=== PATIENT | male | born 1970 | race Two or more races ===

== ENCOUNTER 2022-07-26 13:31 | Inpatient (IN) | payer OTHER ==
[2022-07-26 15:57] VITALS: BMI 17.9
[2022-07-26] MEDS ORDERED: P-EPHED 60MG/TRIPROLIDI 2.5MG TABLET PO PRN (16:12)
[2022-07-26] MEDS ORDERED: guaiFENesin 200 MG/10 ML 10 ML UNIT-DOSE CUPS PO PRN (16:12)
[2022-07-26] MEDS ORDERED: MAGNESIUM HYDROX 2400MG/30ML ORAL SUSPENSION 30 ML CUP PO PRN (16:12)
[2022-07-26] MEDS ORDERED: LOPERAMIDE HCL 2 MG CAPSULE PO PRN (16:12)
[2022-07-26] MEDS ORDERED: MAGNESIUM CITRATE 300 ML BOTTLE PO PRN (16:12)
[2022-07-26] MEDS ORDERED: IBUPROFEN 400 MG TABLET (FP) PO PRN (16:12)
[2022-07-26] MEDS ORDERED: ACETAMINOPHEN 325 MG TABLET (FP) PO PRN (16:12)
[2022-07-26] MEDS: THIAMINE HCL 100 MG TABLET (FP) PO SCH (21:41)
[2022-07-26] MEDS: MELATONIN 5 MG TABLETS PO SCH (21:41)
[2022-07-26] MEDS: NICOTINE 7 MG/24 HOURS TOPICAL PATCH TD SCH (21:42)
[2022-07-26] MEDS: hydrOXYzine PAMOATE 25 MG CAPSULE (FP) PO SCH ×3 (21:42→21:50)
[2022-07-26] MEDS: PRENATAL VITAMINS W/ FOLIC ACID TABLET (FP) PO SCH (21:44)
[2022-07-26] MEDS ORDERED: TUBERCULIN PPD 5 TU/0.1ML VIAL ID ONE (21:48)
[2022-07-26] MEDS: NICOTINE 10 MG CARTRIDGE (INHALER) IH PRN (21:48)
[2022-07-27] MEDS: hydrOXYzine PAMOATE 25 MG CAPSULE (FP) PO SCH ×5 (06:30→21:07)
[2022-07-27] MEDS: NICOTINE 10 MG CARTRIDGE (INHALER) IH PRN ×3 (06:31→21:07)
[2022-07-27] MEDS ORDERED: methaDONE HCL 10 MG TABLET PO SCH (08:00)
[2022-07-27] MEDS ORDERED: methaDONE 40 MG, methaDONE 10 MG PO ONE (08:15)
[2022-07-27] MEDS: PRENATAL VITAMINS W/ FOLIC ACID TABLET (FP) PO SCH (09:36)
[2022-07-27] MEDS: NICOTINE 7 MG/24 HOURS TOPICAL PATCH TD SCH (09:36)
[2022-07-27 14:00] LABS: CALCIUM 8.9 mg/dL (8.5-10.1)
[2022-07-27 14:01] LABS: ALBUMIN 3.2 g/dl (3.4-5.0); BLOOD UREA NITROGEN 18.6 mg/dL (7-18); HEMATOCRIT 36.7 % (35.4-49); HEMOGLOBIN 12.3 GM/dL (11.7-16.9); MCH 32.4 pg (25.7-33.7); MCHC 33.7 g/dl (32.0-35.9); MEAN CELL VOLUME 96.1 fl (80-96); MEAN PLT VOLUME 9.2 fl (7.5-11.1); PLATELET COUNT 207 10^3/uL (134-434); RBC 3.81 M/mm3 (4.00-5.60); RDW 13.4 % (11.9-15.9); WHITE BLOOD COUNT 4.5 K/mm3 (4.0-10.0)
[2022-07-27 14:04] LABS: CREATININE 0.8 mg/dL (0.55-1.3)
[2022-07-27 14:06] LABS: BILIRUBIN,TOTAL 0.3 mg/dL (0.2-1); TOT PROT 6.6 g/dl (6.4-8.2)
[2022-07-27 14:10] LABS: EPI CELLS 15 /uL (0-25.1); HYALINE CASTS 2 /uL (0-3.1); URINE APPEARANCE CLEAR; URINE BACTERIA 86 /uL (0-1359); URINE BILIRUBIN NEGATIVE (NEGATIVE); URINE COLOR YELLOW; URINE GLUCOSE (UA) NEGATIVE (NEGATIVE); URINE KETONE NEGATIVE (NEGATIVE); URINE LEUK ESTERASE TRACE (NEGATIVE); URINE NITRITE NEGATIVE (NEGATIVE); URINE PROTEIN NEGATIVE (NEGATIVE); URINE RBC 49 /uL (0-23.9); URINE UROBILINOGEN 0.2 mg/dL (0.2-1.0); URINE WBC 33 /uL (0-25.8)
[2022-07-27 14:17] LABS: SYPHILIS W/ RPR CONF NON-REACTIVE (NONREACTIVE)
[2022-07-27] MEDS: MAG HYDROX/AL HYDROX/SIMETH 30 ML UNIT-DOSE CUP PO PRN (17:07)
[2022-07-27] MEDS: THIAMINE HCL 100 MG TABLET (FP) PO SCH (21:07)
[2022-07-27] MEDS: MELATONIN 5 MG TABLETS PO SCH (21:07)
[2022-07-27] MEDS: GABAPENTIN 400 MG CAPSULE PO SCH (21:08)
[2022-07-27] MEDS: QUEtiapine FUMARATE 100 MG TABLET (FP) PO SCH (21:08)
[2022-07-28] MEDS: hydrOXYzine PAMOATE 25 MG CAPSULE (FP) PO SCH ×5 (06:01→21:32)
[2022-07-28] MEDS: NICOTINE 10 MG CARTRIDGE (INHALER) IH PRN ×3 (06:36→14:38)
[2022-07-28] MEDS: methaDONE 40 MG, methaDONE 10 MG PO SCH (06:36)
[2022-07-28] MEDS: GABAPENTIN 400 MG CAPSULE PO SCH ×3 (06:36→21:31)
[2022-07-28] MEDS: SERTRALINE HCL 50 MG TABLET (FP) PO SCH (10:09)
[2022-07-28] MEDS: PRENATAL VITAMINS W/ FOLIC ACID TABLET (FP) PO SCH (10:09)
[2022-07-28] MEDS: NICOTINE 7 MG/24 HOURS TOPICAL PATCH TD SCH (10:09)
[2022-07-28] MEDS: MAG HYDROX/AL HYDROX/SIMETH 30 ML UNIT-DOSE CUP PO PRN (10:10)
[2022-07-28] MEDS: PANTOPRAZOLE 20 MG TABLET PO SCH (15:21)
[2022-07-28] MEDS: MELATONIN 5 MG TABLETS PO SCH (21:31)
[2022-07-28] MEDS: THIAMINE HCL 100 MG TABLET (FP) PO SCH (21:31)
[2022-07-28] MEDS: QUEtiapine FUMARATE 100 MG TABLET (FP) PO SCH (21:32)
[2022-07-29] MEDS: methaDONE 40 MG, methaDONE 10 MG PO SCH (06:21)
[2022-07-29] MEDS: MAG HYDROX/AL HYDROX/SIMETH 30 ML UNIT-DOSE CUP PO PRN ×2 (06:23→18:04)
[2022-07-29] MEDS: hydrOXYzine PAMOATE 25 MG CAPSULE (FP) PO SCH ×5 (06:23→21:22)
[2022-07-29] MEDS: NICOTINE 10 MG CARTRIDGE (INHALER) IH PRN ×3 (06:24→18:04)
[2022-07-29] MEDS: GABAPENTIN 400 MG CAPSULE PO SCH (06:24)
[2022-07-29] MEDS: PRENATAL VITAMINS W/ FOLIC ACID TABLET (FP) PO SCH (10:16)
[2022-07-29] MEDS: SERTRALINE HCL 50 MG TABLET (FP) PO SCH (10:16)
[2022-07-29] MEDS: PANTOPRAZOLE 20 MG TABLET PO SCH (10:16)
[2022-07-29] MEDS: NICOTINE 7 MG/24 HOURS TOPICAL PATCH TD SCH (10:16)
[2022-07-29] MEDS: GABAPENTIN 300 MG CAPSULE PO SCH ×2 (14:30→21:22)
[2022-07-29] MEDS: QUEtiapine FUMARATE 100 MG TABLET (FP) PO SCH (21:22)
[2022-07-29] MEDS: THIAMINE HCL 100 MG TABLET (FP) PO SCH (21:22)
[2022-07-29] MEDS: MELATONIN 5 MG TABLETS PO SCH (21:22)
[2022-07-30] MEDS: methaDONE 40 MG, methaDONE 10 MG PO SCH (06:29)
[2022-07-30] MEDS: hydrOXYzine PAMOATE 25 MG CAPSULE (FP) PO SCH ×5 (06:30→21:02)
[2022-07-30] MEDS: GABAPENTIN 300 MG CAPSULE PO SCH ×3 (06:31→21:02)
[2022-07-30] MEDS: MAG HYDROX/AL HYDROX/SIMETH 30 ML UNIT-DOSE CUP PO PRN (07:38)
[2022-07-30] MEDS: PANTOPRAZOLE 20 MG TABLET PO SCH (10:02)
[2022-07-30] MEDS: SERTRALINE HCL 50 MG TABLET (FP) PO SCH (10:02)
[2022-07-30] MEDS: PRENATAL VITAMINS W/ FOLIC ACID TABLET (FP) PO SCH (10:02)
[2022-07-30] MEDS: NICOTINE 7 MG/24 HOURS TOPICAL PATCH TD SCH (10:02)
[2022-07-30] MEDS: NICOTINE 10 MG CARTRIDGE (INHALER) IH PRN (10:03)
[2022-07-30] MEDS: THIAMINE HCL 100 MG TABLET (FP) PO SCH (21:02)
[2022-07-30] MEDS: QUEtiapine FUMARATE 100 MG TABLET (FP) PO SCH (21:02)
[2022-07-30] MEDS: MELATONIN 5 MG TABLETS PO SCH (21:02)
[2022-07-31] MEDS: methaDONE 40 MG, methaDONE 10 MG PO SCH (06:43)
[2022-07-31] MEDS: GABAPENTIN 300 MG CAPSULE PO SCH ×3 (06:44→21:05)
[2022-07-31] MEDS: hydrOXYzine PAMOATE 25 MG CAPSULE (FP) PO SCH ×5 (06:44→21:06)
[2022-07-31] MEDS: MAG HYDROX/AL HYDROX/SIMETH 30 ML UNIT-DOSE CUP PO PRN ×2 (06:47→21:07)
[2022-07-31] MEDS: NICOTINE 7 MG/24 HOURS TOPICAL PATCH TD SCH (10:16)
[2022-07-31] MEDS: SERTRALINE HCL 50 MG TABLET (FP) PO SCH (10:16)
[2022-07-31] MEDS: PANTOPRAZOLE 20 MG TABLET PO SCH (10:16)
[2022-07-31] MEDS: PRENATAL VITAMINS W/ FOLIC ACID TABLET (FP) PO SCH (10:16)
[2022-07-31] MEDS: NICOTINE 10 MG CARTRIDGE (INHALER) IH PRN ×3 (10:17→19:30)
[2022-07-31] MEDS: QUEtiapine FUMARATE 100 MG TABLET (FP) PO SCH (21:06)
[2022-07-31] MEDS: MELATONIN 5 MG TABLETS PO SCH (21:06)
[2022-07-31] MEDS: THIAMINE HCL 100 MG TABLET (FP) PO SCH (21:06)
[2022-08-01] MEDS: methaDONE 40 MG, methaDONE 10 MG PO SCH (06:11)
[2022-08-01] MEDS: GABAPENTIN 300 MG CAPSULE PO SCH ×3 (06:12→21:03)
[2022-08-01] MEDS: hydrOXYzine PAMOATE 25 MG CAPSULE (FP) PO SCH ×5 (06:12→21:04)
[2022-08-01] MEDS: MAG HYDROX/AL HYDROX/SIMETH 30 ML UNIT-DOSE CUP PO PRN ×2 (06:13→21:04)
[2022-08-01] MEDS: NICOTINE 10 MG CARTRIDGE (INHALER) IH PRN ×3 (06:14→21:17)
[2022-08-01] MEDS: PRENATAL VITAMINS W/ FOLIC ACID TABLET (FP) PO SCH (09:57)
[2022-08-01] MEDS: NICOTINE 7 MG/24 HOURS TOPICAL PATCH TD SCH (09:57)
[2022-08-01] MEDS: SERTRALINE HCL 50 MG TABLET (FP) PO SCH (09:57)
[2022-08-01] MEDS: PANTOPRAZOLE 20 MG TABLET PO SCH (09:57)
[2022-08-01] MEDS: THIAMINE HCL 100 MG TABLET (FP) PO SCH (21:03)
[2022-08-01] MEDS: MELATONIN 5 MG TABLETS PO SCH (21:04)
[2022-08-01] MEDS: QUEtiapine FUMARATE 100 MG TABLET (FP) PO SCH (21:04)
[2022-08-02] MEDS: methaDONE 40 MG, methaDONE 10 MG PO SCH (06:29)
[2022-08-02] MEDS: GABAPENTIN 300 MG CAPSULE PO SCH ×3 (06:30→21:17)
[2022-08-02] MEDS: hydrOXYzine PAMOATE 25 MG CAPSULE (FP) PO SCH ×5 (06:30→21:18)
[2022-08-02] MEDS: MAG HYDROX/AL HYDROX/SIMETH 30 ML UNIT-DOSE CUP PO PRN (06:31)
[2022-08-02] MEDS: NICOTINE 10 MG CARTRIDGE (INHALER) IH PRN ×3 (06:31→21:19)
[2022-08-02] MEDS ORDERED: ALBUTEROL SO4 HFA INHALER IH PRN (09:08)
[2022-08-02] MEDS: PANTOPRAZOLE 20 MG TABLET PO SCH (10:34)
[2022-08-02] MEDS: PRENATAL VITAMINS W/ FOLIC ACID TABLET (FP) PO SCH (10:34)
[2022-08-02] MEDS: SERTRALINE HCL 50 MG TABLET (FP) PO SCH (10:34)
[2022-08-02] MEDS: NICOTINE 7 MG/24 HOURS TOPICAL PATCH TD SCH (10:35)
[2022-08-02] MEDS: BICTEGRAV/EMTRICIT/TENOFOV (BIKTARVY) 50-200-25 MG TABLET PO SCH (13:22)
[2022-08-02] MEDS: MELATONIN 5 MG TABLETS PO SCH (21:17)
[2022-08-02] MEDS: THIAMINE HCL 100 MG TABLET (FP) PO SCH (21:17)
[2022-08-02] MEDS: QUEtiapine FUMARATE 100 MG TABLET (FP) PO SCH (21:17)
[2022-08-03] MEDS: GABAPENTIN 300 MG CAPSULE PO SCH ×3 (06:16→21:05)
[2022-08-03] MEDS: hydrOXYzine PAMOATE 25 MG CAPSULE (FP) PO SCH ×5 (06:16→21:05)
[2022-08-03] MEDS: methaDONE 40 MG, methaDONE 10 MG PO SCH (06:16)
[2022-08-03] MEDS: BICTEGRAV/EMTRICIT/TENOFOV (BIKTARVY) 50-200-25 MG TABLET PO SCH (07:02)
[2022-08-03] MEDS: PANTOPRAZOLE 20 MG TABLET PO SCH (09:54)
[2022-08-03] MEDS: SERTRALINE HCL 50 MG TABLET (FP) PO SCH (09:54)
[2022-08-03] MEDS: PRENATAL VITAMINS W/ FOLIC ACID TABLET (FP) PO SCH (09:54)
[2022-08-03] MEDS: NICOTINE 7 MG/24 HOURS TOPICAL PATCH TD SCH (09:54)
[2022-08-03] MEDS: NICOTINE 10 MG CARTRIDGE (INHALER) IH PRN ×3 (09:55→21:05)
[2022-08-03] MEDS: MELATONIN 5 MG TABLETS PO SCH (21:04)
[2022-08-03] MEDS: THIAMINE HCL 100 MG TABLET (FP) PO SCH (21:04)
[2022-08-03] MEDS: QUEtiapine FUMARATE 100 MG TABLET (FP) PO SCH (21:05)
[2022-08-03] MEDS: MAG HYDROX/AL HYDROX/SIMETH 30 ML UNIT-DOSE CUP PO PRN (21:05)
[2022-08-04] MEDS: hydrOXYzine PAMOATE 25 MG CAPSULE (FP) PO SCH ×5 (06:38→21:13)
[2022-08-04] MEDS: methaDONE 40 MG, methaDONE 10 MG PO SCH (06:39)
[2022-08-04] MEDS: GABAPENTIN 300 MG CAPSULE PO SCH ×3 (06:39→21:13)
[2022-08-04] MEDS: MAG HYDROX/AL HYDROX/SIMETH 30 ML UNIT-DOSE CUP PO PRN (06:41)
[2022-08-04] MEDS: BICTEGRAV/EMTRICIT/TENOFOV (BIKTARVY) 50-200-25 MG TABLET PO SCH (08:47)
[2022-08-04] MEDS: NICOTINE 10 MG CARTRIDGE (INHALER) IH PRN ×2 (10:05→21:14)
[2022-08-04] MEDS: PANTOPRAZOLE 20 MG TABLET PO SCH (10:05)
[2022-08-04] MEDS: NICOTINE 7 MG/24 HOURS TOPICAL PATCH TD SCH (10:05)
[2022-08-04] MEDS: SERTRALINE HCL 50 MG TABLET (FP) PO SCH (10:05)
[2022-08-04] MEDS: PRENATAL VITAMINS W/ FOLIC ACID TABLET (FP) PO SCH (10:05)
[2022-08-04] MEDS: MELATONIN 5 MG TABLETS PO SCH (21:13)
[2022-08-04] MEDS: THIAMINE HCL 100 MG TABLET (FP) PO SCH (21:13)
[2022-08-04] MEDS: QUEtiapine FUMARATE 100 MG TABLET (FP) PO SCH (21:13)
[2022-08-05] MEDS: MAG HYDROX/AL HYDROX/SIMETH 30 ML UNIT-DOSE CUP PO PRN (06:03)
[2022-08-05] MEDS: methaDONE 40 MG, methaDONE 10 MG PO SCH (06:04)
[2022-08-05] MEDS: GABAPENTIN 300 MG CAPSULE PO SCH ×3 (06:05→21:30)
[2022-08-05] MEDS: hydrOXYzine PAMOATE 25 MG CAPSULE (FP) PO SCH (06:05)
[2022-08-05] MEDS: BICTEGRAV/EMTRICIT/TENOFOV (BIKTARVY) 50-200-25 MG TABLET PO SCH (07:09)
[2022-08-05] MEDS ORDERED: BISMUTH SUBSALICYLATE 262 MG/15 ML BTL PO ONE (09:45)
[2022-08-05] MEDS: PANTOPRAZOLE 20 MG TABLET PO SCH (10:03)
[2022-08-05] MEDS: SERTRALINE HCL 50 MG TABLET (FP) PO SCH (10:03)
[2022-08-05] MEDS: PRENATAL VITAMINS W/ FOLIC ACID TABLET (FP) PO SCH (10:03)
[2022-08-05] MEDS: NICOTINE 7 MG/24 HOURS TOPICAL PATCH TD SCH (10:04)
[2022-08-05] MEDS: SIMETHICONE 80 MG TAB.CHEW (FP) PO PRN (14:11)
[2022-08-05] MEDS: MELATONIN 5 MG TABLETS PO SCH (21:29)
[2022-08-05] MEDS: QUEtiapine FUMARATE 100 MG TABLET (FP) PO SCH (21:30)
[2022-08-05] MEDS: THIAMINE HCL 100 MG TABLET (FP) PO SCH (21:30)
[2022-08-05] MEDS: hydrOXYzine PAMOATE 25 MG CAPSULE (FP) PO PRN (21:31)
[2022-08-06] MEDS: methaDONE 40 MG, methaDONE 10 MG PO SCH (06:07)
[2022-08-06] MEDS: GABAPENTIN 300 MG CAPSULE PO SCH ×3 (06:08→21:17)
[2022-08-06] MEDS: hydrOXYzine PAMOATE 25 MG CAPSULE (FP) PO PRN (06:11)
[2022-08-06] MEDS: BICTEGRAV/EMTRICIT/TENOFOV (BIKTARVY) 50-200-25 MG TABLET PO SCH (07:17)
[2022-08-06] MEDS: SERTRALINE HCL 50 MG TABLET (FP) PO SCH (09:35)
[2022-08-06] MEDS: PRENATAL VITAMINS W/ FOLIC ACID TABLET (FP) PO SCH (09:35)
[2022-08-06] MEDS: PANTOPRAZOLE 20 MG TABLET PO SCH (09:36)
[2022-08-06] MEDS: NICOTINE 7 MG/24 HOURS TOPICAL PATCH TD SCH (09:37)
[2022-08-06] MEDS: NICOTINE 10 MG CARTRIDGE (INHALER) IH PRN (15:09)
[2022-08-06] MEDS: THIAMINE HCL 100 MG TABLET (FP) PO SCH (21:16)
[2022-08-06] MEDS: QUEtiapine FUMARATE 100 MG TABLET (FP) PO SCH (21:17)
[2022-08-06] MEDS: MELATONIN 5 MG TABLETS PO SCH (21:17)
[2022-08-06] MEDS: SIMETHICONE 80 MG TAB.CHEW (FP) PO PRN (21:18)
[2022-08-07] MEDS: methaDONE 40 MG, methaDONE 10 MG PO SCH (06:51)
[2022-08-07] MEDS: GABAPENTIN 300 MG CAPSULE PO SCH ×3 (06:52→21:03)
[2022-08-07] MEDS: hydrOXYzine PAMOATE 25 MG CAPSULE (FP) PO PRN (06:53)
[2022-08-07] MEDS: BICTEGRAV/EMTRICIT/TENOFOV (BIKTARVY) 50-200-25 MG TABLET PO SCH (07:01)
[2022-08-07] MEDS: NICOTINE 10 MG CARTRIDGE (INHALER) IH PRN ×2 (08:28→21:04)
[2022-08-07] MEDS: PRENATAL VITAMINS W/ FOLIC ACID TABLET (FP) PO SCH (09:37)
[2022-08-07] MEDS: SERTRALINE HCL 50 MG TABLET (FP) PO SCH (09:37)
[2022-08-07] MEDS: NICOTINE 7 MG/24 HOURS TOPICAL PATCH TD SCH (09:37)
[2022-08-07] MEDS: PANTOPRAZOLE 20 MG TABLET PO SCH (09:38)
[2022-08-07] MEDS: SIMETHICONE 80 MG TAB.CHEW (FP) PO PRN ×2 (10:04→21:03)
[2022-08-07] MEDS: MELATONIN 5 MG TABLETS PO SCH (21:03)
[2022-08-07] MEDS: THIAMINE HCL 100 MG TABLET (FP) PO SCH (21:03)
[2022-08-07] MEDS: QUEtiapine FUMARATE 100 MG TABLET (FP) PO SCH (21:03)
[2022-08-08] MEDS: methaDONE 40 MG, methaDONE 10 MG PO SCH (06:49)
[2022-08-08] MEDS: GABAPENTIN 300 MG CAPSULE PO SCH ×3 (06:49→21:11)
[2022-08-08] MEDS: hydrOXYzine PAMOATE 25 MG CAPSULE (FP) PO PRN (06:50)
[2022-08-08] MEDS: BICTEGRAV/EMTRICIT/TENOFOV (BIKTARVY) 50-200-25 MG TABLET PO SCH (07:14)
[2022-08-08] MEDS: PANTOPRAZOLE 20 MG TABLET PO SCH (09:38)
[2022-08-08] MEDS: SIMETHICONE 80 MG TAB.CHEW (FP) PO PRN ×2 (09:38→21:11)
[2022-08-08] MEDS: NICOTINE 7 MG/24 HOURS TOPICAL PATCH TD SCH (09:38)
[2022-08-08] MEDS: PRENATAL VITAMINS W/ FOLIC ACID TABLET (FP) PO SCH (09:38)
[2022-08-08] MEDS: SERTRALINE HCL 50 MG TABLET (FP) PO SCH (09:38)
[2022-08-08] MEDS: NICOTINE 10 MG CARTRIDGE (INHALER) IH PRN (09:39)
[2022-08-08] MEDS: THIAMINE HCL 100 MG TABLET (FP) PO SCH (21:10)
[2022-08-08] MEDS: MELATONIN 5 MG TABLETS PO SCH (21:10)
[2022-08-08] MEDS: QUEtiapine FUMARATE 100 MG TABLET (FP) PO SCH (21:11)
[2022-08-09] MEDS: SIMETHICONE 80 MG TAB.CHEW (FP) PO PRN (06:19)
[2022-08-09] MEDS: methaDONE 40 MG, methaDONE 10 MG PO SCH (06:20)
[2022-08-09] MEDS: GABAPENTIN 300 MG CAPSULE PO SCH ×3 (06:21→21:14)
[2022-08-09] MEDS: hydrOXYzine PAMOATE 25 MG CAPSULE (FP) PO PRN ×2 (06:21→13:51)
[2022-08-09] MEDS: BICTEGRAV/EMTRICIT/TENOFOV (BIKTARVY) 50-200-25 MG TABLET PO SCH (07:01)
[2022-08-09] MEDS: PANTOPRAZOLE 20 MG TABLET PO SCH (09:57)
[2022-08-09] MEDS: PRENATAL VITAMINS W/ FOLIC ACID TABLET (FP) PO SCH (09:57)
[2022-08-09] MEDS: SERTRALINE HCL 50 MG TABLET (FP) PO SCH (09:57)
[2022-08-09] MEDS: NICOTINE 7 MG/24 HOURS TOPICAL PATCH TD SCH (09:58)
[2022-08-09] MEDS: BISMUTH SUBSALICYLATE 262 MG/15 ML BTL PO PRN (10:01)
[2022-08-09] MEDS: NICOTINE 10 MG CARTRIDGE (INHALER) IH PRN (10:03)
[2022-08-09] MEDS: THIAMINE HCL 100 MG TABLET (FP) PO SCH (21:14)
[2022-08-09] MEDS: QUEtiapine FUMARATE 100 MG TABLET (FP) PO SCH (21:14)
[2022-08-09] MEDS: MELATONIN 5 MG TABLETS PO SCH (21:14)
[2022-08-10] MEDS: methaDONE 40 MG, methaDONE 10 MG PO SCH (06:47)
[2022-08-10] MEDS: hydrOXYzine PAMOATE 25 MG CAPSULE (FP) PO PRN ×2 (06:48→21:06)
[2022-08-10] MEDS: GABAPENTIN 300 MG CAPSULE PO SCH ×3 (06:48→21:05)
[2022-08-10] MEDS: BICTEGRAV/EMTRICIT/TENOFOV (BIKTARVY) 50-200-25 MG TABLET PO SCH (08:14)
[2022-08-10] MEDS: PRENATAL VITAMINS W/ FOLIC ACID TABLET (FP) PO SCH (09:57)
[2022-08-10] MEDS: SERTRALINE HCL 50 MG TABLET (FP) PO SCH (09:57)
[2022-08-10] MEDS: NICOTINE 7 MG/24 HOURS TOPICAL PATCH TD SCH (09:57)
[2022-08-10] MEDS: NICOTINE 10 MG CARTRIDGE (INHALER) IH PRN (09:57)
[2022-08-10] MEDS: PANTOPRAZOLE 20 MG TABLET PO SCH (09:57)
[2022-08-10] MEDS: BISMUTH SUBSALICYLATE 262 MG/15 ML BTL PO PRN (09:58)
[2022-08-10] MEDS: MELATONIN 5 MG TABLETS PO SCH (21:05)
[2022-08-10] MEDS: QUEtiapine FUMARATE 100 MG TABLET (FP) PO SCH (21:05)
[2022-08-10] MEDS: THIAMINE HCL 100 MG TABLET (FP) PO SCH (21:05)
[2022-08-11] MEDS: GABAPENTIN 300 MG CAPSULE PO SCH ×3 (06:15→21:10)
[2022-08-11] MEDS: methaDONE 40 MG, methaDONE 10 MG PO SCH (06:15)
[2022-08-11] MEDS: hydrOXYzine PAMOATE 25 MG CAPSULE (FP) PO PRN (06:16)
[2022-08-11] MEDS: BICTEGRAV/EMTRICIT/TENOFOV (BIKTARVY) 50-200-25 MG TABLET PO SCH (07:00)
[2022-08-11] MEDS: PRENATAL VITAMINS W/ FOLIC ACID TABLET (FP) PO SCH (09:43)
[2022-08-11] MEDS: PANTOPRAZOLE 20 MG TABLET PO SCH (09:43)
[2022-08-11] MEDS: NICOTINE 7 MG/24 HOURS TOPICAL PATCH TD SCH (09:44)
[2022-08-11] MEDS: BISMUTH SUBSALICYLATE 262 MG/15 ML BTL PO PRN ×2 (09:44→21:11)
[2022-08-11] MEDS: SERTRALINE HCL 50 MG TABLET (FP) PO SCH (09:44)
[2022-08-11] MEDS: NICOTINE 10 MG CARTRIDGE (INHALER) IH PRN ×2 (09:46→21:10)
[2022-08-11] MEDS: THIAMINE HCL 100 MG TABLET (FP) PO SCH (21:10)
[2022-08-11] MEDS: QUEtiapine FUMARATE 100 MG TABLET (FP) PO SCH (21:10)
[2022-08-11] MEDS: MELATONIN 5 MG TABLETS PO SCH (21:10)
[2022-08-12] MEDS: hydrOXYzine PAMOATE 25 MG CAPSULE (FP) PO PRN (06:10)
[2022-08-12] MEDS: GABAPENTIN 300 MG CAPSULE PO SCH ×3 (06:10→21:13)
[2022-08-12] MEDS: methaDONE 40 MG, methaDONE 10 MG PO SCH (06:10)
[2022-08-12] MEDS: SIMETHICONE 80 MG TAB.CHEW (FP) PO PRN ×2 (06:39→21:13)
[2022-08-12] MEDS: BICTEGRAV/EMTRICIT/TENOFOV (BIKTARVY) 50-200-25 MG TABLET PO SCH (07:00)
[2022-08-12] MEDS: PRENATAL VITAMINS W/ FOLIC ACID TABLET (FP) PO SCH (09:50)
[2022-08-12] MEDS: SERTRALINE HCL 50 MG TABLET (FP) PO SCH (09:51)
[2022-08-12] MEDS: PANTOPRAZOLE 20 MG TABLET PO SCH (09:51)
[2022-08-12] MEDS: NICOTINE 7 MG/24 HOURS TOPICAL PATCH TD SCH (09:52)
[2022-08-12] MEDS: MELATONIN 5 MG TABLETS PO SCH (21:12)
[2022-08-12] MEDS: THIAMINE HCL 100 MG TABLET (FP) PO SCH (21:12)
[2022-08-12] MEDS: QUEtiapine FUMARATE 100 MG TABLET (FP) PO SCH (21:13)
[2022-08-13] MEDS: methaDONE 40 MG, methaDONE 10 MG PO SCH (05:55)
[2022-08-13] MEDS: GABAPENTIN 300 MG CAPSULE PO SCH ×3 (05:55→21:10)
[2022-08-13] MEDS: BICTEGRAV/EMTRICIT/TENOFOV (BIKTARVY) 50-200-25 MG TABLET PO SCH (07:47)
[2022-08-13] MEDS: PRENATAL VITAMINS W/ FOLIC ACID TABLET (FP) PO SCH (09:39)
[2022-08-13] MEDS: SERTRALINE HCL 50 MG TABLET (FP) PO SCH (09:40)
[2022-08-13] MEDS: PANTOPRAZOLE 20 MG TABLET PO SCH (09:40)
[2022-08-13] MEDS: NICOTINE 7 MG/24 HOURS TOPICAL PATCH TD SCH (09:40)
[2022-08-13] MEDS: NICOTINE 10 MG CARTRIDGE (INHALER) IH PRN (09:40)
[2022-08-13] MEDS: THIAMINE HCL 100 MG TABLET (FP) PO SCH (21:10)
[2022-08-13] MEDS: QUEtiapine FUMARATE 100 MG TABLET (FP) PO SCH (21:10)
[2022-08-13] MEDS: MELATONIN 5 MG TABLETS PO SCH (21:10)
[2022-08-13] MEDS: BISMUTH SUBSALICYLATE 262 MG/15 ML BTL PO PRN (21:10)
[2022-08-14] MEDS: hydrOXYzine PAMOATE 25 MG CAPSULE (FP) PO PRN (06:32)
[2022-08-14] MEDS: GABAPENTIN 300 MG CAPSULE PO SCH ×3 (06:32→21:04)
[2022-08-14] MEDS: methaDONE 40 MG, methaDONE 10 MG PO SCH (06:32)
[2022-08-14] MEDS: BICTEGRAV/EMTRICIT/TENOFOV (BIKTARVY) 50-200-25 MG TABLET PO SCH (07:08)
[2022-08-14] MEDS: NICOTINE 7 MG/24 HOURS TOPICAL PATCH TD SCH (10:16)
[2022-08-14] MEDS: PRENATAL VITAMINS W/ FOLIC ACID TABLET (FP) PO SCH (10:16)
[2022-08-14] MEDS: SERTRALINE HCL 50 MG TABLET (FP) PO SCH (10:16)
[2022-08-14] MEDS: PANTOPRAZOLE 20 MG TABLET PO SCH (10:16)
[2022-08-14] MEDS: NICOTINE 10 MG CARTRIDGE (INHALER) IH PRN (10:17)
[2022-08-14] MEDS: BISMUTH SUBSALICYLATE 262 MG/15 ML BTL PO PRN (21:04)
[2022-08-14] MEDS: QUEtiapine FUMARATE 100 MG TABLET (FP) PO SCH (21:04)
[2022-08-14] MEDS: MELATONIN 5 MG TABLETS PO SCH (21:04)
[2022-08-14] MEDS: THIAMINE HCL 100 MG TABLET (FP) PO SCH (21:04)
[2022-08-15] MEDS: GABAPENTIN 300 MG CAPSULE PO SCH ×3 (06:10→21:21)
[2022-08-15] MEDS: hydrOXYzine PAMOATE 25 MG CAPSULE (FP) PO PRN (06:10)
[2022-08-15] MEDS: methaDONE 40 MG, methaDONE 10 MG PO SCH (06:10)
[2022-08-15] MEDS: BICTEGRAV/EMTRICIT/TENOFOV (BIKTARVY) 50-200-25 MG TABLET PO SCH (07:02)
[2022-08-15] MEDS: PANTOPRAZOLE 20 MG TABLET PO SCH (09:56)
[2022-08-15] MEDS: SERTRALINE HCL 50 MG TABLET (FP) PO SCH (09:56)
[2022-08-15] MEDS: PRENATAL VITAMINS W/ FOLIC ACID TABLET (FP) PO SCH (09:56)
[2022-08-15] MEDS: NICOTINE 10 MG CARTRIDGE (INHALER) IH PRN ×2 (09:56→21:39)
[2022-08-15] MEDS: NICOTINE 7 MG/24 HOURS TOPICAL PATCH TD SCH (09:57)
[2022-08-15] MEDS: QUEtiapine FUMARATE 100 MG TABLET (FP) PO SCH (21:20)
[2022-08-15] MEDS: MELATONIN 5 MG TABLETS PO SCH (21:20)
[2022-08-15] MEDS: THIAMINE HCL 100 MG TABLET (FP) PO SCH (21:20)
[2022-08-15] MEDS: BISMUTH SUBSALICYLATE 262 MG/15 ML BTL PO PRN (21:21)
[2022-08-16] MEDS: hydrOXYzine PAMOATE 25 MG CAPSULE (FP) PO PRN (06:28)
[2022-08-16] MEDS: methaDONE 40 MG, methaDONE 10 MG PO SCH (06:28)
[2022-08-16] MEDS: GABAPENTIN 300 MG CAPSULE PO SCH ×3 (06:28→21:16)
[2022-08-16 06:43] VITALS: RESP 18
[2022-08-16] MEDS: BICTEGRAV/EMTRICIT/TENOFOV (BIKTARVY) 50-200-25 MG TABLET PO SCH (07:00)
[2022-08-16] MEDS: PRENATAL VITAMINS W/ FOLIC ACID TABLET (FP) PO SCH (10:31)
[2022-08-16] MEDS: NICOTINE 7 MG/24 HOURS TOPICAL PATCH TD SCH (10:31)
[2022-08-16] MEDS: NICOTINE 10 MG CARTRIDGE (INHALER) IH PRN (10:31)
[2022-08-16] MEDS: PANTOPRAZOLE 20 MG TABLET PO SCH (10:32)
[2022-08-16] MEDS: SERTRALINE HCL 50 MG TABLET (FP) PO SCH (10:32)
[2022-08-16] MEDS: QUEtiapine FUMARATE 100 MG TABLET (FP) PO SCH (21:16)
[2022-08-16] MEDS: MELATONIN 5 MG TABLETS PO SCH (21:16)
[2022-08-16] MEDS: THIAMINE HCL 100 MG TABLET (FP) PO SCH (21:16)
[2022-08-16] MEDS: BISMUTH SUBSALICYLATE 262 MG/15 ML BTL PO PRN (21:16)
[2022-08-17] MEDS: GABAPENTIN 300 MG CAPSULE PO SCH ×3 (06:39→21:20)
[2022-08-17] MEDS: hydrOXYzine PAMOATE 25 MG CAPSULE (FP) PO PRN (06:39)
[2022-08-17] MEDS: methaDONE 40 MG, methaDONE 10 MG PO SCH (06:39)
[2022-08-17] MEDS: BICTEGRAV/EMTRICIT/TENOFOV (BIKTARVY) 50-200-25 MG TABLET PO SCH (07:01)
[2022-08-17] MEDS: BISMUTH SUBSALICYLATE 262 MG/15 ML BTL PO PRN (09:55)
[2022-08-17] MEDS: PRENATAL VITAMINS W/ FOLIC ACID TABLET (FP) PO SCH (09:56)
[2022-08-17] MEDS: PANTOPRAZOLE 20 MG TABLET PO SCH (09:56)
[2022-08-17] MEDS: SERTRALINE HCL 50 MG TABLET (FP) PO SCH (09:56)
[2022-08-17] MEDS: NICOTINE 10 MG CARTRIDGE (INHALER) IH PRN ×2 (09:56→21:20)
[2022-08-17] MEDS: NICOTINE 7 MG/24 HOURS TOPICAL PATCH TD SCH (09:56)
[2022-08-17] MEDS: QUEtiapine FUMARATE 100 MG TABLET (FP) PO SCH (21:20)
[2022-08-17] MEDS: THIAMINE HCL 100 MG TABLET (FP) PO SCH (21:20)
[2022-08-17] MEDS: MELATONIN 5 MG TABLETS PO SCH (21:20)
[2022-08-18] MEDS: methaDONE 40 MG, methaDONE 10 MG PO SCH (06:13)
[2022-08-18] MEDS: hydrOXYzine PAMOATE 25 MG CAPSULE (FP) PO PRN (06:14)
[2022-08-18] MEDS: GABAPENTIN 300 MG CAPSULE PO SCH ×3 (06:14→21:12)
[2022-08-18] MEDS: BICTEGRAV/EMTRICIT/TENOFOV (BIKTARVY) 50-200-25 MG TABLET PO SCH (07:02)
[2022-08-18] MEDS: SERTRALINE HCL 50 MG TABLET (FP) PO SCH (10:02)
[2022-08-18] MEDS: PRENATAL VITAMINS W/ FOLIC ACID TABLET (FP) PO SCH (10:02)
[2022-08-18] MEDS: PANTOPRAZOLE 20 MG TABLET PO SCH (10:02)
[2022-08-18] MEDS: BISMUTH SUBSALICYLATE 262 MG/15 ML BTL PO PRN (10:03)
[2022-08-18] MEDS: NICOTINE 10 MG CARTRIDGE (INHALER) IH PRN ×2 (10:03→21:13)
[2022-08-18] MEDS: NICOTINE 7 MG/24 HOURS TOPICAL PATCH TD SCH (10:04)
[2022-08-18] MEDS: MELATONIN 5 MG TABLETS PO SCH (21:12)
[2022-08-18] MEDS: THIAMINE HCL 100 MG TABLET (FP) PO SCH (21:12)
[2022-08-18] MEDS: QUEtiapine FUMARATE 100 MG TABLET (FP) PO SCH (21:12)
[2022-08-19] MEDS: methaDONE 40 MG, methaDONE 10 MG PO SCH (06:15)
[2022-08-19] MEDS: hydrOXYzine PAMOATE 25 MG CAPSULE (FP) PO PRN (06:15)
[2022-08-19] MEDS: GABAPENTIN 300 MG CAPSULE PO SCH (06:15)
[2022-08-19 06:52] VITALS: BP 117/79; PULSE 71; TEMP 98
[2022-08-19] MEDS: BICTEGRAV/EMTRICIT/TENOFOV (BIKTARVY) 50-200-25 MG TABLET PO SCH (07:05)
[2022-08-19] MEDS: PRENATAL VITAMINS W/ FOLIC ACID TABLET (FP) PO SCH (09:55)
[2022-08-19] MEDS: SERTRALINE HCL 50 MG TABLET (FP) PO SCH (09:55)
[2022-08-19] MEDS: PANTOPRAZOLE 20 MG TABLET PO SCH (09:55)
[2022-08-19] MEDS: NICOTINE 10 MG CARTRIDGE (INHALER) IH PRN (09:55)
[2022-08-19] MEDS: BISMUTH SUBSALICYLATE 262 MG/15 ML BTL PO PRN (09:55)
[2022-08-19] MEDS: NICOTINE 7 MG/24 HOURS TOPICAL PATCH TD SCH (09:56)
== END 2022-08-19 10:07 | disposition home or self-care (01) | DRG 772 ==
LOC: YASAS 13:31 → Y3W 19:48
PROVIDERS: ADMIT Allergy & Immunology; ATTEND Surgery
PROC: HZ42ZZZ Group Counseling for Substance Abuse Treatment, Cognitive-Behavioral (ICD-10-PCS; principal; 2022-07-26)
DX: F14.20 Cocaine dependence, uncomplicated (principal); F11.20 Opioid dependence, uncomplicated; F12.20 Cannabis dependence, uncomplicated; F17.210 Nicotine dependence, cigarettes, uncomplicated; F25.9 Schizoaffective disorder, unspecified; F19.24 Other psychoactive substance dependence with psychoactive substance-induced mood disorder; Z21 Asymptomatic human immunodeficiency virus [HIV] infection status; E11.9 Type 2 diabetes mellitus without complications; J45.909 Unspecified asthma, uncomplicated; K29.70 Gastritis, unspecified, without bleeding; M54.30 Sciatica, unspecified side; Z28.310 Unvaccinated for COVID-19; N28.9 Disorder of kidney and ureter, unspecified
CPT/HCPCS: 36415; 80053; 81003; 82962; 83036; 85027; 86780; 86803; C9803-CS; U0003; U0005